=== PATIENT | female | born 1985 | race Two or more races ===

== ENCOUNTER 2016-07-22 17:30 | Emergency (ER) | payer SELFPAY ==
[~2016-07-22 17:30] MED LIST: ALBUTEROL INH 0.3 ML AERO NEB; ALBUTEROL2.5 MG/0.1 IH; AMOXICILLIN500 M2 PO; ANAPROX DS550 MG PO; BAYER MIGRAINE1 EACH PO; BIPOLAR MEDS; CLARITIN-D1 TAB.SR . PO; CLARITIN10 M4 PO; COREG12.5 M1 PO; CYMBALTA20 MG PO; CYMBALTA60 MG PO; DOXYCYCLINE HY100 M3 PO; DOXYCYCLINE MO100 MG PO; DUONEB 2.5-0.5MG3 M1 AERO NEB; DUONEB INH; FIORICET 50-301 EAC1 PO; FLAGYL500 MG PO; HYDROCODON-ACE1 EAC7 PO; HYDROXYZINE HCL25 M1 PO; HYDROXYZINE HCL50 M1 PO; LEVAQUIN750 MG PO; MOTRIN800 MG PO; NAPROSYN500 M1 PO; NAPROXEN500 M1 PO; NORCO 5-325 TA1 EACH PO; NORCO 5/325 TAB1 TAB PO; PENICILLIN V P500 M1 PO; PREDNISONE10 M1 PO; PREDNISONE10 MG PO; PREDNISONE20 M1 PO; PREDNISONE20 MG PO; PROAIR HFA8.5 GM IH; PROPRANOLOL HCL10 M1 PO; PROVENTIL HFA6.7 GM IH; PROZAC20 M3 PO; PROZAC40 M1 PO; PROZASIN PO; SPRINTEC 28 DA1 EACH PO; TRAMADOL HCL50 MG PO; TRILEPTAL150 MG PO; TRILEPTAL300 M1 PO; VERAPAMIL240 MG/TA1 PO; ZEBUTAL 50-3251 EAC1 PO; ZITHROMAX250 M1 PO; ZITHROMAX250MG Z-PAK PO
[2016-07-22 18:03] LABS: URINE BILIRUBIN NEGATIVE (NEG); URINE BLOOD NEGATIVE (NEG); URINE GLUCOSE (UA) NEGATIVE (NEG); URINE KETONE NEGATIVE (NEG); URINE LEUKOCYTE ESTERASE POSITIVE (NEG); URINE NITRITE NEGATIVE (NEG); URINE PROTEIN SMALL (NEG); URINE SPECIFIC GRAVITY 1.025 (1.003-1.030)
[2016-07-22 18:04] LABS: URINE APPEARANCE CLEAR; URINE COLOR DARK YELLOW
[2016-07-22 18:11] LABS: URINE MUCUS 1+
[2016-07-22 18:12] LABS: URINE BACTERIA 1+
[2016-07-22 18:14] LABS: BASO % 0.5 % (0-2); BASO ABSOLUTE COUNT 0.1 tho/cmm (0.0-0.2); EOS % 6.4 % (0-7); EOSINOPHIL ABSOLUTE COUNT 0.8 tho/cmm (0.0-0.7); HCT-HEMATOCRIT 38.4 % (34.0-49.0); HGB-HEMOGLOBIN 12.5 gm/dl (12.0-15.5); IMMATURE GRANULOCYTES ABSOLUTE 0.12 tho/cmm (0-0.03); LYMPH % 24.2 % (20-45); LYMPH ABSOLUTE COUNT 2.9 tho/cmm (0.8-4.5); MCH (MEAN CORPUSCULAR HGB) 27.6 pg (28.0-32.0); MCHC MEAN CORPUSCULAR HGB CONC 32.6 % (32.0-36.0); MCV (MEAN CELL VOLUME) 84.8 fl (82.0-96.0); MEAN PLATELET VOLUME 10.2 cmc (9.4-12.4); MONO % 5.5 % (0-12); MONOCYTE ABSOLUTE COUNT 0.7 tho/cmm (0.0-1.2); NEUTROPHIL ABSOLUTE COUNT 7.5 tho/cmm (1.6-8.0); NEUTROPHIL-AUTOMATED 7.5 tho/cmm (1.6-8.0); NEUTROPHILS % 62.4 % (40-80); PLATELET COUNT 333 tho/cmm (150-450); RED BLOOD COUNT 4.53 mil/cmm (4.00-5.20); RED CELL DISTRIBUTION WIDTH 13.9 % (12.4-16.4)
[2016-07-22 18:30] LABS: ANION GAP 13 mmol/L (0-20); BLOOD UREA NITROGEN 9 mg/dl (6-24); CALCIUM 8.6 mg/dl (8.5-10.5); CARBON DIOXIDE-VENOUS 24 mmol/L (22-32); CHLORIDE 107 mmol/l (96-110); CREATININE 0.56 mg/dl (0.50-1.10); GLUCOSE 125 mg/dL (70-110); POTASSIUM 3.8 mmol/L (3.7-5.1); SODIUM 140 mmol/L (135-145); eGFR VALUE FOR BLACK >90 mL/Min
[2016-07-22] MEDS ORDERED: NORCO 5-325 TA1 EACH PO (19:53)
== END 2016-07-22 20:07 ==
LOC: EDMED 17:30
PROVIDERS: Family Medicine
DX: N83.201 Unspecified ovarian cyst, right side (principal); I10 Essential (primary) hypertension; R56.9 Unspecified convulsions; F31.9 Bipolar disorder, unspecified; F43.10 Post-traumatic stress disorder, unspecified; F17.210 Nicotine dependence, cigarettes, uncomplicated
CPT/HCPCS: J1885

== ENCOUNTER 2016-10-02 15:09 | Emergency (ER) | payer SELFPAY ==
[2016-10-02] MEDS ORDERED: NAPROSYN500 M1 PO (15:20)
[2016-10-02] MEDS ORDERED: COMPAZINE10 MG PO (17:02)
== END 2016-10-02 17:08 ==
LOC: EDMED 15:09
DX: R51 Headache (principal); I10 Essential (primary) hypertension; F31.9 Bipolar disorder, unspecified; F43.10 Post-traumatic stress disorder, unspecified; F17.200 Nicotine dependence, unspecified, uncomplicated
CPT/HCPCS: J1170; J1200; J1885; J2405; J7030

== ENCOUNTER 2016-10-16 21:48 | Emergency (ER) | payer SELFPAY ==
[~2016-10-16 21:48] MED LIST changes: +COMPAZINE10 MG PO
[2016-10-16] MEDS ORDERED: NORCO 5-325 TA1 EACH PO (21:57)
== END 2016-10-16 23:36 ==
LOC: EDMED 21:48
DX: G43.909 Migraine, unspecified, not intractable, without status migrainosus (principal); J45.909 Unspecified asthma, uncomplicated; F31.9 Bipolar disorder, unspecified; F41.9 Anxiety disorder, unspecified; F43.10 Post-traumatic stress disorder, unspecified; Z79.899 Other long term (current) drug therapy; F17.200 Nicotine dependence, unspecified, uncomplicated
CPT/HCPCS: J1200; J1885; J2765; J7030

== ENCOUNTER 2016-10-20 16:20 | Emergency (ER) | payer SELFPAY | END 2016-10-20 19:00 | disposition T | LOC: EDMED 16:20 | DX: G43.909 Migraine, unspecified, not intractable, without status migrainosus (principal); J45.909 Unspecified asthma, uncomplicated; F31.9 Bipolar disorder, unspecified; F17.200 Nicotine dependence, unspecified, uncomplicated; Z79.51 Long term (current) use of inhaled steroids; Z79.899 Other long term (current) drug therapy | CPT/HCPCS: J1200; J1885; J2060; J2405; J7030 ==